=== PATIENT | female | born 1980 | race Caucasian/White ===

== ENCOUNTER 2016-12-04 18:25 | Emergency (ER) | payer OTHER ==
[~2016-12-04] VITALS: Ht 157.5 cm; Wt 88.2 kg
[2016-12-04 20:43] VITALS: BP 120/75
== END 2016-12-04 20:43 | disposition home or self-care (01) ==
LOC: ED 18:25
DX: S63.610A Unspecified sprain of right index finger, initial encounter (principal); X50.1XXA Overexertion from prolonged static or awkward postures, initial encounter; X50.9XXA Other and unspecified overexertion or strenuous movements or postures, initial encounter; Y93.61 Activity, american tackle football; Y99.8 Other external cause status; Y92.89 Other specified places as the place of occurrence of the external cause
CPT/HCPCS: A4570